=== PATIENT | male | born 1965 | race Two or more races ===

== ENCOUNTER 2021-08-26 15:29 | Emergency (ER) | payer OTHER ==
[~2021-08-26] VITALS: Ht 162.6 cm; Wt 103.4 kg
[2021-08-26] MEDS ORDERED: ONDANSETRON HCL 4 MG/2 ML VIAL IV ONE (15:45)
[2021-08-26] MEDS ORDERED: MORPHINE SULFATE 4 MG/ML SYR/VIAL IV ONE ×2 (15:45→17:45)
[2021-08-26 18:11] VITALS: BP 135/73
[2021-08-26] MEDS ORDERED: HYDR-4902 PO (18:16)
== END 2021-08-26 18:25 | disposition home or self-care (01) ==
LOC: ER 15:29 → EDBD 15:29 → ER 18:25
DX: S92.062A Displaced intraarticular fracture of left calcaneus, initial encounter for closed fracture (principal); Z79.899 Other long term (current) drug therapy; W11.XXXA Fall on and from ladder, initial encounter; Y93.89 Activity, other specified; Y92.89 Other specified places as the place of occurrence of the external cause; Y99.8 Other external cause status
CPT/HCPCS: 29515; 73590; 73630; 73650; 96374; 96375; 96376; 99284; J2270; J2405

== ENCOUNTER 2021-09-02 17:55 | Emergency (ER) | payer OTHER ==
[~2021-09-02] VITALS: Ht 167.6 cm; Wt 102.1 kg
[~2021-09-02 17:55] MED LIST: HYDR-4902 PO
[2021-09-02 18:20] VITALS: BP 124/82
== END 2021-09-02 22:56 | disposition left against medical advice (07) ==
LOC: ER 17:55
DX: M79.672 Pain in left foot (principal); Z53.21 Procedure and treatment not carried out due to patient leaving prior to being seen by health care provider